=== PATIENT | female | born 1970 | race Caucasian/White ===

== ENCOUNTER 2020-04-10 10:24 | Emergency (ER) | payer BC, OTHER ==
[~2020-04-10] VITALS: Ht 160 cm; Wt 73.7 kg
[~2020-04-10 10:24] MED LIST: ACHD5005 PO; BUSP5TAB59 PO; CETI10CA PO; CITA10TA PO; CPR500T PO; ESTR1TAB24 PO; HYDR118S10 PO; LEVO500T69 PO; LSNP10T PO; METR500T PO; MTF500T PO
[2020-04-10] MEDS ORDERED: NS IV 1000 ML 1,000 ML IV SCH (11:15)
[2020-04-10 11:16] LABS: HEMATOCRIT 42 % (35-52); MEAN CORPUSCULAR VOLUME 87 FL (80-99)
[2020-04-10 11:16] LABS: BILIRUBIN,URINE NEGATIVE (NEGATIVE); CLARITY,URINE CLEAR; COLOR,URINE YELLOW; GLUCOSE, URINE (UA) TRACE (NEGATIVE); KETONES,URINE NEGATIVE (NEGATIVE); LEUKOCYTE ESTERASE ,URINE NEGATIVE (NEGATIVE); NITRITE,URINE NEGATIVE (NEGATIVE); PROTEIN,URINE NEGATIVE (NEGATIVE); RBC,URINE RARE /HPF; SQUAMOUS EPITHELIAL CELL,UR 0-2 /HPF
[2020-04-10 11:17] LABS: BASOPHILS # (AUTO) 0.1 10^3/uL (0.0-0.1); BASOPHILS % (AUTO) 0 % (0-10); EOSINOPHILS # (AUTO) 0.1 10^3/uL (0.0-0.3); EOSINOPHILS % (AUTO) 1 % (0-10); LYMPHOCYTES # (AUTO) 2.6 X 10^3 (1.0-4.0); LYMPHOCYTES % (AUTO) 17 % (12-44); MEAN CORPUSCULAR HEMOGLOBIN 29 PG (25-34); MEAN CORPUSCULAR HGB CONC 34 G/DL (32-36); MONOCYTES % (AUTO) 7 % (0-12); NEUTROPHILS # (AUTO) 11.1 X 10^3 (1.8-7.8); NEUTROPHILS % (AUTO) 74 % (42-75); PLATELET COUNT 300 10^3/uL (130-400)
[2020-04-10 11:30] LABS: ALANINE AMINOTRANSFERASE 7 U/L (0-55); ALBUMIN 4.1 GM/DL (3.2-4.5); ALKALINE PHOSPHATASE 73 U/L (40-136); BILIRUBIN,TOTAL 0.4 MG/DL (0.1-1.0); BUN/CREATININE RATIO 11; CALCIUM 9.7 MG/DL (8.5-10.1); CARBON DIOXIDE 25 MMOL/L (21-32); CHLORIDE 103 MMOL/L (98-107); GFR ESTIMATED > 60; GLUCOSE 98 MG/DL (70-105); POTASSIUM 4.2 MMOL/L (3.6-5.0); SODIUM 140 MMOL/L (135-145); TOTAL PROTEIN 7.3 GM/DL (6.4-8.2)
[2020-04-10] MEDS ORDERED: CATHETER FLUSH 10 ML SYR IV PRN (11:30)
[2020-04-10] MEDS ORDERED: HOLD METFORMIN - RECEIVED CONTRAST 20 ML VIAL IV SCH (11:30)
[2020-04-10] MEDS ORDERED: IOHEXOL 350 MG/ML 100 ML (OMNIPAQUE 350) VIAL IV ONE (11:30)
[2020-04-10] MEDS ORDERED: NS 100 ML (IVPB) BAG IV ONE (11:30)
--- NOTE | 2020-04-10 11:32 | ED General ---
General Chief Complaint: Abdominal/GI Problems Stated Complaint: LT ABD PAIN Nursing Triage Note: Patient presents to the ED with c/o of left flank pain radiating to left groin. States she had intermittent pain for the past two weeks with worsening pain withing the last 3 days. Nursing Sepsis Screen: No Definite Risk Source of Information: Patient History of Present Illness Date Seen by Provider: Apr 10, 2020 Time Seen by Provider: 11:00 Initial Comments Patient is a 49-year-old female who comes to the emergency department today complaining of flank pain. She said pain on the left that radiates to the groin area. She has had the pain intermittently over the last 2 weeks but it became more severe over the last 3 days. She describes pain over the left flank area and left abdomen. Pain is rated to be severe at times. No aggravating or alleviating factors. She has had some nausea but no vomiting. Denies urinary symptoms. Denies irregular vaginal bleeding or discharge. She is status post total hysterectomy. Does not have prior history of similar symptoms. Denies any urinary changes or hematuria that she has noticed. Allergies and Home Medications Allergies Coded Allergies: Penicillins (Verified Allergy, Unknown, 04/10/20) codeine (Verified Allergy, Unknown, 04/10/20) Home Medications Buspirone Hcl 5 Mg Tab, 5 MG PO, (Reported) Cetirizine Hcl 10 Mg Capsule, 10 MG PO DAILY, (Reported) Ciprofloxacin 500 Mg Tablet, 1 TAB PO BID Prescribed by: RACHEL CARPENTER on 03/26/132027 Citalopram Hydrobromide 10 Mg Tablet, 10 MG PO DAILY, (Reported) Hydrocodone Bit/Acetaminophen 1 Each Tablet, 1-2 EACH PO Q6H PRN Prescribed by: RACHEL CARPENTER on 03/26/132028 Lisinopril 10 Mg Tab, 10 MG PO DAILY, (Reported) Metformin Hcl 500 Mg Tablet, 1 EACH PO DAILY, (Reported) Metronidazole 500 Mg Tab, 1 EACH PO BID Prescribed by: RACHEL CARPENTER on 03/26/132025 Patient Home Medication List Home Medication List Reviewed: Yes Review of Systems Review of Systems Constitutional: no symptoms reported EENTM: no symptoms reported Respiratory: no symptoms reported Cardiovascular: no symptoms reported Gastrointestinal: see HPI Genitourinary: no symptoms reported Musculoskeletal: no symptoms reported Skin: no symptoms reported Hematologic/Lymphatic: No Symptoms Reported All Other Systems Reviewed Negative Unless Noted: Yes Past Jbjzufb-Sjckty-Zxzhlz Hx Patient Social History Alcohol Use: Denies Use Recreational Drug Use: No Smoking Status: Never a Smoker 2nd Hand Smoke Exposure: No Recent Foreign Travel: No Contact w/Someone Who Travel: No Recent Infectious Disease Expo: No Recent Hopitalizations: No Physical Abuse: No Sexual Abuse: No Mistreated: No Fear: No Seasonal Allergies Seasonal Allergies: No Past Medical History Surgeries: Yes (LAP BAND, ADHESIONS) Gallbladder, Hysterectomy Respiratory: No Cardiac: No Neurological: No Reproductive Disorders: Yes Female Reproductive Disorders: Polycystic Ovarian Dis CARDIOPULMONARY SPECIALIST History: Hysterectomy Genitourinary: No Gastrointestinal: No Musculoskeletal: No Endocrine: No HEENT: Yes (Right Eye Cancer) Loss of Vision: Right Cancer: Yes (Right Eye) What Type of Treatment Did You: Radiation, Other Also gets chemo injection in her eye Psychosocial: No Integumentary: No Blood Disorders: No Physical Exam Vital Signs Vital Signs - First Documented 04/10/20 10:40 Temp 37.2 Pulse 103 Resp 16 B/P (MAP) 115/71 (86) Pulse Ox 98 O2 Delivery Room Air Capillary Refill : Less Than 3 Seconds Height, Weight, BMI Height: '" Weight: 180lbs. oz. 81.720690lp; 28.00 BMI Method: General Appearance: No Apparent Distress, WD/WN HEENT: PERRL/EOMI Neck: Full Range of Motion Respiratory: Lungs Clear Cardiovascular: Regular Rate, Rhythm Gastrointestinal: Normal Bowel Sounds, Other (abdomen is soft but tender and mildly guarded over the left upper and lower quadrant) Neurologic/Psychiatric: Alert, Oriented x3 Skin: Normal Color, Warm/Dry Progress/Results/Core Measures Suspected Sepsis Recent Fever Within 48 Hours: No Infection Criteria Present: Suspected New Infection New/Unexplained Altered Menta: No Sepsis Screen: No Definite Risk SIRS Temperature: Pulse: 103 Respiratory Rate: 16 Laboratory Tests 04/10/20 11:00: White Blood Count 15.0H Blood Pressure 115 /71 Mean: 86 Laboratory Tests 04/10/20 11:00: Creatinine 0.70, Platelet Count 300, Total Bilirubin 0.4 Results/Orders Lab Results Laboratory Tests Test 04/10/20 10:35 04/10/20 11:00 Range/Units Urine Color YELLOW Urine Clarity CLEAR Urine pH 6.0 5-9 Urine Specific Hammond <1.005 1.016-1.022 Urine Protein NEGATIVE NEGATIVE Urine Glucose (UA) TRACE H NEGATIVE Urine Ketones NEGATIVE NEGATIVE Urine Nitrite NEGATIVE NEGATIVE Urine Bilirubin NEGATIVE NEGATIVE Urine Urobilinogen 0.2 < = 1.0 MG/DL Urine Leukocyte Esterase NEGATIVE NEGATIVE Urine RBC (Auto) NEGATIVE NEGATIVE Urine RBC RARE /HPF Urine WBC NONE /HPF Urine Squamous Epithelial Cells 0-2 /HPF Urine Crystals NONE /LPF Urine Bacteria NONE /HPF Urine Casts NONE /LPF Urine Mucus NEGATIVE /LPF Urine Culture Indicated NO Urine Test NEGATIVE NEGATIVE White Blood Count 15.0 H 4.3-11.0 10^3/uL Red Blood Count 4.80 4.35-5.85 10^6/uL Hemoglobin 14.0 11.5-16.0 G/DL Hematocrit 42 35-52 % Mean Corpuscular Volume 87 80-99 FL Mean Corpuscular Hemoglobin 29 25-34 PG Mean Corpuscular Hemoglobin Concent 34 32-36 G/DL Red Cell Distribution Width 13.5 10.0-14.5 % Platelet Count 300 130-400 10^3/uL Mean Platelet Volume 11.0 H 7.4-10.4 FL Neutrophils (%) (Auto) 74 42-75 % Lymphocytes (%) (Auto) 17 12-44 % Monocytes (%) (Auto) 7 0-12 % Eosinophils (%) (Auto) 1 0-10 % Basophils (%) (Auto) 0 0-10 % Neutrophils # (Auto) 11.1 H 1.8-7.8 X 10^3 Lymphocytes # (Auto) 2.6 1.0-4.0 X 10^3 Monocytes # (Auto) 1.0 0.0-1.0 X 10^3 Eosinophils # (Auto) 0.1 0.0-0.3 10^3/uL Basophils # (Auto) 0.1 0.0-0.1 10^3/uL Neutrophils % (Manual) 71 % Lymphocytes % (Manual) 22 % Monocytes % (Manual) 6 % Eosinophils % (Manual) 1 % Basophils % (Manual) 0 % Band Neutrophils 0 % Blood Morphology Comment NORMAL Sodium Level 140 135-145 MMOL/L Potassium Level 4.2 3.6-5.0 MMOL/L Chloride Level 103 98-107 MMOL/L Carbon Dioxide Level 25 21-32 MMOL/L Anion Gap 12 5-14 MMOL/L Blood Urea Nitrogen 8 7-18 MG/DL Creatinine 0.70 0.60-1.30 MG/DL Estimat Glomerular Filtration Rate > 60 BUN/Creatinine Ratio 11 Glucose Level 98 70-105 MG/DL Calcium Level 9.7 8.5-10.1 MG/DL Corrected Calcium 9.6 8.5-10.1 MG/DL Total Bilirubin 0.4 0.1-1.0 MG/DL Aspartate Amino Transf (AST/SGOT) 9 5-34 U/L Alanine Aminotransferase (ALT/SGPT) 7 0-55 U/L Alkaline Phosphatase 73 40-136 U/L Total Protein 7.3 6.4-8.2 GM/DL Albumin 4.1 3.2-4.5 GM/DL My Orders Orders - ANA NGUYEN DO Ua Culture If Indicated (04/10/20 10:53) Ed Iv/Invasive Line Start (04/10/20 11:03) Cbc With Automated Diff (04/10/20 11:03) Comprehensive Metabolic Panel (04/10/20 11:03) Ct Abdomen/Pelvis W (04/10/20 11:03) Hcg,Qualitative Urine (04/10/20 11:03) Ns Iv 1000 Ml (Sodium Chloride 0.9%) (04/10/20 11:15) Manual Differential (04/10/20 11:00) Iohexol Injection (Omnipaque 350 Mg/Ml 1 (04/10/20 11:30) Received Contrast (Hold Metformin- Contr (04/10/20 11:30) Sodium Chloride Flush (Catheter Flush Sy (04/10/20 11:30) Ns (Ivpb) (Sodium Chloride 0.9% Ivpb Bag (04/10/20 11:30) Morphine Injection (Morphine Injection (04/10/20 11:43) Ondansetron Injection (Zofran Injectio (04/10/20 11:45) Ketorolac Injection (Toradol Injection) (04/10/20 11:45) Levofloxacin Tablet (Levaquin Tablet) (04/10/20 12:15) Metronidazole Tablet (Flagyl Tablet) (04/10/20 12:30) Medications Given in ED Current Medications Medications Dose Ordered Sig/Ana Luisa Route Start Time Stop Time Status Last Admin Dose Admin Iohexol 100 ml ONCE ONCE IV 04/10/20 11:30 04/10/20 11:31 DC 04/10/20 11:29 100 ML Ketorolac Tromethamine 30 mg ONCE ONCE IVP 04/10/20 11:45 04/10/20 11:46 DC 04/10/20 12:19 30 MG Levofloxacin 500 mg ONCE ONCE PO 04/10/20 12:15 04/10/20 12:16 DC 04/10/20 12:26 500 MG Metronidazole 500 mg ONCE ONCE PO 04/10/20 12:30 04/10/20 12:31 DC 04/10/20 12:26 500 MG Ondansetron HCl 4 mg ONCE ONCE IVP 04/10/20 11:45 04/10/20 11:46 DC 04/10/20 12:19 4 MG Sodium Chloride 10 ml NEEDED PRN IV 04/10/20 11:30 04/10/20 11:29 10 ML Sodium Chloride 100 ml ONCE ONCE IV 04/10/20 11:30 04/10/20 11:31 DC 04/10/20 11:29 100 ML Vital Signs/I&O 04/10/20 10:40 Temp 37.2 Pulse 103 Resp 16 B/P (MAP) 115/71 (86) Pulse Ox 98 O2 Delivery Room Air Capillary Refill : Less Than 3 Seconds Blood Pressure Mean: 86 Progress Note : Time: 11:51 Progress Note Patient is seen and examined on arrival to her room. She does have tenderness over the left abdomen. She has mild nausea and pain but is overall in no acute distress. Will do CT scanning basic labs including urinalysis. Morphine, Toradol, Zofran ordered for symptom relief. 12:30: All results are reviewed and discussed with the patient. All of her questions are answered. CT scanning suspicious for colitis versus diverticulitis. No abscess. Patient was given some morphine and Zofran in the ER. She is feeling much improved. Her first dose of Levaquin and Flagyl are also given in the ER. Plan is for discharge home. I recommended clear liquid diet over the next 2 days. Continue antibiotic therapy by mouth at home. Also given s ome medications for pain and nausea. Return precautions were discussed with her and she will return to the hospital if she fails outpatient therapies. Departure Impression Primary Impression: Colitis Disposition: 01 HOME, SELF-CARE Condition: Improved Departure-Patient Inst. Referrals: NO,LOCAL PHYSICIAN (PCP/Family) Primary Care Physician ANA NGUYEN DO Apr 10, 2020 11:32
[2020-04-10] MEDS ORDERED: morphine INJ 10 MG/ML 1ML (SYR OR VIAL) IVP STA (11:43)
[2020-04-10] MEDS ORDERED: ONDANSETRON 4 MG/2 ML (SDV) Z0FRAN IVP ONE (11:45)
[2020-04-10] MEDS ORDERED: KETOROLAC 30 MG/ML VIAL IVP ONE (11:45)
[2020-04-10 11:49] LABS: BAND NEUTROPHILS 0 %; BASOPHILS % (MANUAL) 0 %; EOSINOPHILS % (MANUAL) 1 %; LYMPHOCYTES % (MANUAL) 22 %; MONOCYTES % (MANUAL) 6 %; NEUTROPHILS % (MANUAL) 71 %; RBC MORPH NORMAL
--- NOTE | 2020-04-10 11:50 | Diagnostic Imaging Report ---
PROCEDURE: CT abdomen and pelvis with contrast. TECHNIQUE: Multiple contiguous axial images were obtained through the abdomen and pelvis after administration of intravenous contrast. Auto Exposure Controls were utilized during the CT exam to meet ALARA standards for radiation dose reduction. INDICATION: Flank pain. Comparison made with prior examination 03/26/2013 FINDINGS: The heart size is normal. The lung bases are clear. The liver is normal in size without focal lesions. There is no biliary ductal dilatation. Gallbladder is surgically absent. Spleen is normal. The pancreas and adrenal glands are unremarkable. Kidneys are normal in appearance. There is some focal mucosal thickening in the descending colon where there is also surrounding inflammatory change and fluid in the left pericolic gutter. There is diverticular disease. Bladder is normal. There is no pelvic mass or adenopathy. The osseous structures are unremarkable. IMPRESSION: Diffuse mucosal thickening and inflammatory change about the descending colon with some free fluid in the left pericolic gutter. No discrete fluid collections appreciated to suggest abscess. This either reflects colitis or possibly a diverticulitis. Recommend clinical correlation. Otherwise moderate diverticular disease. No other acute abnormality in the abdomen and/or pelvis. Dictated by: Dictated on workstation # [id number]
[2020-04-10] MEDS ORDERED: metroNIDAZOLE 500MG/100ML IVPB 100 ML IV ONE (12:15)
[2020-04-10] MEDS ORDERED: LEVOFLOXACIN 500 MG TAB (LEVAQUIN) PO ONE (12:15)
[2020-04-10] MEDS ORDERED: metroNIDAZOLE 500 MG (FLAGYL) TAB PO ONE (12:30)
[2020-04-10] MEDS ORDERED: ACHD5005 PO (12:37)
[2020-04-10] MEDS ORDERED: LEVO500T2 PO (12:37)
[2020-04-10] MEDS ORDERED: METR500T PO (12:37)
[2020-04-10 12:59] VITALS: BP 125/68
== END 2020-04-10 12:58 | disposition home or self-care (01) ==
LOC: EDUNIT# 10:24 → ER FS 10:26
DX: K52.9 Noninfective gastroenteritis and colitis, unspecified (principal); Z88.0 Allergy status to penicillin; Z88.5 Allergy status to narcotic agent; Z79.84 Long term (current) use of oral hypoglycemic drugs; Z85.840 Personal history of malignant neoplasm of eye
CPT/HCPCS: 36415; 74177; 80053; 81000; 84703; 85007; 85027

== ENCOUNTER → 2023-05-12 | Outpatient (CLI) | payer BC ==
[~2023-05-12] MED LIST changes: +LEVO500T2 PO
== END ==
LOC: RAD 14:23
PROVIDERS: ATTEND Family Medicine
DX: M25.511 Pain in right shoulder (principal)